=== PATIENT | male | born 1950 | race Hispanic/Latino ===

== ENCOUNTER 2021-03-10 08:19 | Emergency (ER) | payer MEDICARE ==
[2021-03-10] MEDS ORDERED: LORazepam 2 MG/ML VIAL ONE ×2 (08:40→08:58)
--- NOTE | 2021-03-10 08:49 | Consultation ---
History of Present Illness - Reason for Consult Consult date: 03/10/21 - History of Present Illness [facility] Consult Note # Demographics Consult Type: Acute Stroke Level 2 (4.5-24 hrs) Patient Location: Emergency Room First Name: Lior Last Name: Ronny Date of : 1950 Age: 71 Gender: Male Time of Initial Page ( Time): 03/10/2021, 08:29 Time of Return Call ( Time): 03/10/2021, 08:32 # HPI History: 71yo many who presents with being LKN around 12PM yesterday. Today, he was noted to have left sided weakness, slurred speech and drooling. # Scores Time of exam and NIHSS (): 03/10/2021, 08:34 Level of Consciousness 1a: [0] = Alert; keenly responsive LOC Questions 1b: [0] = Answers both questions correctly LOC Commands 1c: [1] = Performs one correctly Best Gaze 2: [0] = Normal Visual 3: [0] = No visual loss Facial Palsy 4: [1] = Minor paralysis Motor Arm Left 5a: [2] = Some effort against gravity Motor Arm Right 5b: [0] = No drift Motor Leg Left 6a: [0] = No drift Motor Leg Right 6b: [0] = No drift Limb Ataxia 7: [0] = Absent Sensory 8: [0] = Normal Best Language 9: [0] = No aphasia Dysarthria 10: [1] = Xkyr-vh-bldljary dysarthria Extinction and Inattention 11: [0] = No abnormality NIHSS Total: 5 # Data Head CT: right subdural hygroma, new small intraparenchymal component # Assessment Impression: Subdural Hematoma # Plan Thrombolytic/Intervention: NOT IV Thrombolytic or IA Intervention Thrombolytic Exclusion (< 3 hour window): ICH Thrombolytic Exclusion: other (see below), SDH Intraarterial Exclusion: ICH Other: consult neurosurgery, I have discussed my recommendations with the referring provider Medications and Allergies Allergies Allergy/AdvReac Type Severity Reaction Status Date / Time No Known Allergies Allergy Verified 03/10/21 08:30 Exam - Constitutional Vitals: Temp Pulse Resp BP Pulse Ox 98.6 F 99 H 20 156/86 98 03/10/21 08:26 03/10/21 08:26 03/10/21 08:26 03/10/21 08:26 03/10/21 08:26 Results - Labs Labs: Abnormal lab results 03/10/21 Range/Units 08:25 POC Glucose 298 H (70-105) mg/dL
--- NOTE | 2021-03-10 09:00 | Cat Scan Report ---
NONENHANCED CT SCAN OF THE HEAD: INDICATION / CLINICAL INFORMATION: 71 years Male; Stroke symptoms. TECHNIQUE: Routine CT head without contrast. All CT scans at this location are performed using CT dos e reduction for ALARA by means of automated exposure control. COMPARISON: None. FINDINGS: BRAIN / INTRACRANIAL CONTENTS: Abnormal CT scan Mixed subdural hematoma seen over the right cerebral hemisphere. Subdural collection is maximum in th e right posterior parietal region with the thickness of 13 mm. There is a mass effect over the right lateral ventricle with mjjch-oj-nlae midline shift of approximately 3 mm at the level of foramen of M onro. No evidence of descending tentorial herniation; clinical sulci in the right cerebral convexity effaced Brainstem and cerebellar hemispheres normal; cortical involution in the left cerebral hemisphere CRANIOCERVICAL JUNCTION: No significant abnormality. ORBITS: No significant abnormality of visualized orbits. SINUSES / MASTOIDS: No significant abnormality of the visualized paranasal sinuses or mastoid air janette ls. ADDITIONAL FINDINGS: None. IMPRESSION: Mixed subdural hematoma over the right cerebral hemisphere; more posteriorly acute/subacute subdural hematoma; mild mass effect over the right lateral ventricle ==== CRITICAL RESULT: Time of Discovery (GIS ENGINEER/CDT): 7:52 AM Time of Communication (GIS ENGINEER/CDT): 7:54 AM Licensed Practitioner Receiving Report: ER physician Read-Back Performed: Yes. Signer Name: Sita Hagan MD Signed: 03/10/2021 8:55 AM Workstation Name: [id number]
[2021-03-10] MEDS ORDERED: LORazepam 2 MG/ML VIAL IV ONE (09:02)
[2021-03-10] MEDS ORDERED: levETIRAcetam 1,000 MG in SODIUM CHLORIDE 0.9% 100 ML IV ONE (09:02)
[2021-03-10 09:10] LABS: Basophils # (Auto) 0.1 K/mm3 (0.0-0.1); Basophils % (Auto) 1.3 % (0.0-1.8); Eosinophils # (Auto) 0.1 K/mm3 (0.0-0.4); Hematocrit 33.7 % (35.5-45.6); Hemoglobin 11.7 gm/dl (11.8-15.2); Lymphocytes # (Auto) 2.1 K/mm3 (1.2-5.4); Mean Corpuscular HGB Conc 35 % (32-34); Mean Corpuscular Volume 87 fl (84-94); Monocytes # (Auto) 0.8 K/mm3 (0.0-0.8); Monocytes % (Auto) 7.8 % (0.0-7.3); Platelet Count 315 K/mm3 (140-440); Red Blood Count 3.89 M/mm3 (3.65-5.03); Red Cell Distribution Width 12.5 % (13.2-15.2)
[2021-03-10] MEDS ORDERED: levETIRAcetam 1000 MG/NS 0.75% 1,000 MG/100 ML BAG IV ONE (09:30)
[2021-03-10 09:34] LABS: Creatine Kinase MB 7.8 ng/mL (0.0-4.0)
[2021-03-10 09:35] LABS: BUN/Creatinine Ratio 16; Blood Urea Nitrogen 22 mg/dL (9-20); Calcium 9.2 mg/dL (8.4-10.2); Hemolysis Index 3
[2021-03-10 09:42] LABS: INR 1.02 (0.87-1.13)
[2021-03-10 09:43] LABS: Partial Thromboplastin Time 30.9 Sec. (24.2-36.6); Thrombin Time 16.3 Sec. (15.1-19.6)
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
--- NOTE | 2021-03-10 10:05 | Cat Scan Report ---
Exam: CT cervical spine History: fall; Technique: Contiguous thin cut axial images obtained through the cervical spine. Sagittal and delgadillo l reconstructions performed by the technologist. All CT scans at this location are performed using CT dose reduction for ALARA by means of automated exposure control. Images through upper cervical spin e are marred by motion related artifacts Findings: No priors. There is no evidence of fracture or traumatic subluxation. Vertebral bodies are normal in height and alignment. Schmorl's node is seen along the superior endpla te of C6 Disc space is narrowed at C5-C6 level; shallow bony spur more towards the left side; neuroforamina ar e normal No significant degenerative change seen in the uncinate or facet joints. No significant canal stenosi s or osseous foraminal narrowing. Subcutaneous cyst in the left side of the neck posteriorly Impression: No signs of acute bony trauma to the cervical spine. Signer Name: Sita Hagan MD Signed: 03/10/2021 10:01 AM Workstation Name: [id number]
--- NOTE | 2021-03-10 11:05 | XRay Report ---
LEFT ELBOW 3 VIEW(S) INDICATION / CLINICAL INFORMATION: injury/PAIN COMPARISON: None available. FINDINGS: BONES / JOINT(S): No acute fracture or subluxation. Mild to moderate degenerative change at the elbow . SOFT TISSUES: No significant abnormality. No joint effusion. ADDITIONAL FINDINGS: None. Signer Name: Pola Aquino MD Signed: 03/10/2021 11:01 AM Workstation Name: [id number]
[2021-03-10 12:11] LABS: Alanine Aminotransferase 9 units/L (7-56); Albumin 3.8 g/dL (3.9-5)
[2021-03-10 12:18] LABS: Bilirubin,Direct < 0.2 mg/dL (0-0.2)
[2021-03-10 12:20] VITALS: BP 127/87
--- NOTE | 2021-03-12 11:46 | Electrocardiograph Report ---
[facility] Test Date: 2021-03-10 Test Time: 09:04:53 Pat Name: BARBARA RAMOS Department: Room: Gender: M Planning Manager: CRISS : [id number] Requested By: ALLEN HERNANDEZ Order Number: [id number] Reading MD: Britni Cedeño Measurements Intervals [place] Rate: 85 P: 31 TX: 99 QRS: 17 QRSD: 98 T: 36 QT: 386 QTc: 460 Interpretive Statements Sinus rhythm Multiple ventricular premature complexes Cannot exclude the presence of an intracardiac pacemaker No previous ECG available for comparison Electronically Signed On 03-12-2021 11:46:30 EDT by Britni Cedeño
== END 2021-03-10 12:21 | disposition other institution (70) ==
LOC: ED 08:19
DX: S06.5X9A Traumatic subdural hemorrhage with loss of consciousness of unspecified duration, initial encounter (principal); V47.6XXA Car passenger injured in collision with fixed or stationary object in traffic accident, initial encounter; Y93.89 Activity, other specified; Y92.410 Unspecified street and highway as the place of occurrence of the external cause; Y99.8 Other external cause status
CPT/HCPCS: 36415; 70450; 72125; 73080; 80048; 80076; 82550; 82553; 82962; 84484; 85025; 85610; 85670; 85730; 93005; 96365; 96375; 99291; J1953; J2060